=== PATIENT | female | born 2000 | race Caucasian/White ===

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

== ENCOUNTER 2018-12-07 12:57 | Outpatient (REF) | payer BC, SELFPAY ==
[2018-12-08 14:52] LABS: Chlamydia Result Negative; GC Result Negative; Specimen Description CERVIX
== END 2018-12-07 13:17 ==
LOC: LBN 12:57
PROVIDERS: PCP Pediatrics; Visit Provider Obstetrics & Gynecology Gynecology
DX: Z11.3 Encounter for screening for infections with a predominantly sexual mode of transmission (principal)
CPT/HCPCS: 87491; 87591

== ENCOUNTER 2019-01-26 10:38 | Outpatient (CLI) | payer BC, SELFPAY ==
[2019-01-29 11:35] LABS: Hepatitis C Ab w Rflx HCV PCR Negative (NEGAT)
[2019-01-29 12:04] LABS: Hepatitis B Surface Ag Negative (NEGAT)
[2019-01-29 12:33] LABS: HIV-1/2 Ag & Ab Screen Negative (NEGAT)
[2019-01-29 13:07] LABS: Syphilis Serology (RPR) Negative (Negative)
[2019-01-30 07:16] LABS: Chlamydia Result Negative (Negative); GC Result Negative (Negative); Specimen Description CERVIX
== END 2019-01-26 10:58 ==
PROVIDERS: PCP Pediatrics; Visit Provider Obstetrics & Gynecology
DX: Z72.51 High risk heterosexual behavior (principal); Z11.59 Encounter for screening for other viral diseases; Z11.3 Encounter for screening for infections with a predominantly sexual mode of transmission; Z11.4 Encounter for screening for human immunodeficiency virus [HIV]
CPT/HCPCS: 36415; 86803; 87340; 87389; 87491; 87591; 86592; 87480; 87510; 87660

== ENCOUNTER 2019-03-02 11:42 | Outpatient (REF) | payer BC, SELFPAY ==
[2019-03-05 12:29] LABS: Chlamydia Result Negative (Negative)
[2019-03-05 12:35] LABS: GC Result Negative (Negative)
== END 2019-03-02 12:02 ==
LOC: LBN 11:42
PROVIDERS: PCP Pediatrics; Visit Provider Nurse Practitioner Family
DX: Z11.3 Encounter for screening for infections with a predominantly sexual mode of transmission (principal)
CPT/HCPCS: 87491; 87591

== ENCOUNTER 2019-12-18 11:55 | Outpatient (REF) | payer BC, SELFPAY ==
--- NOTE | 2019-12-18 15:25 | PAPFT_PTH ---
PATIENT: Edith Saavedra LOC: [facility] U#:[id number] AGE/SX: 19/F ROOM: RE12/18/[address]: Joelle Jackson NP : 2000 BED: DIS: 12/18/2019 SPEC #: [id number] RECD: 12/19/19 12:52 STATUS: BRETT QUINTANA #: [id number] EMI: 12/18/19 15:[address]: Joelle Jackson NP DEPT: [facility] Cytology RECD BY: Aram Donovan Tissues: 1 - CX/ENDOCX FOR PAP SMEARS Procedures: PAP THIN PREP/[facility] Screening Comments: [id number] (CHLAMYDIA/GC)
[2019-12-22 01:29] LABS: Chlamydia Result Negative (Negative); GC Result Negative (Negative)
== END 2019-12-18 12:15 ==
LOC: LBN 11:55
PROVIDERS: PCP Pediatrics; Visit Provider Nurse Practitioner Women's Health
DX: Z12.4 Encounter for screening for malignant neoplasm of cervix (principal)
CPT/HCPCS: 87491; 87591; 88142

== ENCOUNTER 2019-12-28 08:06 | Outpatient (CLI) | payer BC, SELFPAY ==
[2019-12-31 05:47] LABS: Patient Race White; SARS-CoV-2 RNA Undetected (Undetected); SARS-CoV-2 Specimen Source Nasopharynx
== END 2019-12-28 08:26 ==
PROVIDERS: PCP Pediatrics; Visit Provider Pediatrics
DX: Z11.59 Encounter for screening for other viral diseases (principal)
CPT/HCPCS: U0003

== ENCOUNTER 2021-04-08 18:29 | Outpatient (REF) | payer BC, SELFPAY ==
[2021-04-10 15:16] LABS: Chlamydia Result Negative (Negative); GC Result Negative (Negative)
== END 2021-04-08 18:30 | disposition home or self-care (01) ==
LOC: LBN 18:29
PROVIDERS: PCP Pediatrics; Visit Provider Nurse Practitioner Women's Health
DX: Z11.3 Encounter for screening for infections with a predominantly sexual mode of transmission (principal)
CPT/HCPCS: 87491; 87591

== ENCOUNTER 2021-04-20 02:51 | Outpatient (CLI) | payer BC, SELFPAY ==
[2021-04-22 13:12] LABS: TB Interpretation Negative (Negative); TB1 Ag minus Nil 0.03 IU/ml; TB2 Ag minus Nil 0.16 IU/mL
== END 2021-04-20 02:52 | disposition home or self-care (01) ==
LOC: LBO 02:51
PROVIDERS: PCP Pediatrics; Visit Provider Student in an Organized Health Care Education/Training Program
DX: Z11.9 Encounter for screening for infectious and parasitic diseases, unspecified (principal)
CPT/HCPCS: 36415; 86480

== ENCOUNTER 2021-06-05 16:39 | Outpatient (REF) | payer BC, SELFPAY ==
[2021-06-08 15:34] LABS: Chlamydia Result Negative (Negative); GC Result Negative (Negative)
== END 2021-06-05 16:40 | disposition home or self-care (01) ==
LOC: LBN 16:39
PROVIDERS: PCP Student in an Organized Health Care Education/Training Program; Visit Provider Nurse Practitioner Family
DX: Z11.3 Encounter for screening for infections with a predominantly sexual mode of transmission (principal)
CPT/HCPCS: 87491; 87591

== ENCOUNTER 2021-12-03 14:15 | Outpatient (REF) | payer BC, SELFPAY ==
[2021-12-04 15:08] LABS: Chlamydia Result Negative (Negative); GC Result Negative (Negative)
== END 2021-12-03 14:16 | disposition home or self-care (01) ==
LOC: LBN 14:15
PROVIDERS: PCP Student in an Organized Health Care Education/Training Program; Visit Provider Nurse Practitioner Family
DX: Z11.3 Encounter for screening for infections with a predominantly sexual mode of transmission (principal)
CPT/HCPCS: 87491; 87591